=== PATIENT | female | born 1990 | race Caucasian/White ===

== ENCOUNTER 2024-09-02 19:16 | Emergency (ER) | payer MEDICAID, SELFPAY ==
[2024-09-02 19:17] VITALS: BMI 32.7
[2024-09-02 19:41] VITALS: BP 108/76; PULSE 65; RESP 16; TEMP 36.6; O2SAT 100
--- NOTE | 2024-09-02 19:57 | XR_ITS ---
Examination: PA lateral chest 2 views Technique: Upright PA lateral chest 2 views Exam date and time: September 02, [id number] hrs. Indications: Coughing beginning 2 weeks ago. Findings: Suspicious for early medial right base pneumonia Normal heart size Left lung clear Impression: Suspicious for early medial right base pneumonia
--- NOTE | 2024-09-02 19:59 | EDNOTE_ITS ---
ED Fever RME/HPI General Chief Complaint: Fever Stated Complaint: FEVER/ VOMITING [id number] Time Seen by Provider: 09/02/24 19:25 Arrival date/time: 09/02/24 19:16 This is a 33-year-old female that comes in with complaints of for fever, nausea vomiting, weakness, cough for about 2 weeks now. Patient has been treated with 2 different antibiotics the first being Augmentin and the second 1 being Zithromax. Patient states she still feels sick and she is not feeling better. Limitations: no limitations Related Data Home Medications ?Medication ?Instructions ?Recorded ?Confirmed cetirizine 10 mg tablet (Zyrtec) 10 mg PO QDAY 06/12/20 11/01/20 Previous Rx's ?Medication ?Instructions ?Recorded meloxicam 15 mg tablet 15 mg PO QDAY #30 tabs 11/01/20 famotidine 20 mg tablet 20 mg PO QDAY #30 tabs 12/26/23 sucralfate 100 mg/mL oral 5 ml PO QID #400 mL 12/26/23 suspension (Carafate) ibuprofen 800 mg tablet 800 mg PO TID PRN pain #30 tabs 06/04/24 ibuprofen 800 mg tablet 800 mg PO Q6H PRN pain #14 tabs 09/02/24 ondansetron 4 mg disintegrating 4 mg PO Q6H PRN nausea and 09/02/24 tablet vomiting #14 tabs promethazine-DM 6.25 mg-15 mg/5 mL 5 ml PO Q6H PRN cough #120 mL 09/02/24 oral syrup Allergies Allergy/AdvReac Type Severity Reaction Status Date / Time hydromorphone Allergy Severe hives Verified 06/04/24 13:11 latex Allergy Severe Hives Verified 06/04/24 13:11 meperidine Allergy Severe hives Verified 06/04/24 13:11 morphine Allergy Severe hives Verified 06/04/24 13:11 trimethoprim Allergy Severe RASH, Verified 06/04/24 13:11 ITCHING adhesive tape AdvReac Severe TEARS SKIN Verified 06/04/24 13:11 Review of Systems Review of Systems Systems Reviewed: All systems reviewed, normal except as documented Past Medical History Past Medical History NEUROLOGIC: Negative Neurological Disorders or Seizures CARDIAC: Positive Cardiac Disorders, Congestive Heart Failure and Hypertension RESPIRATORY: Positive Pulmonary Edema; Negative Chronic Obstructive Pulmonary Disease (COPD) GASTROINTESTINAL: Negative Gastrointestinal Disorders GENITOURINARY: Negative Genitourinary Disorders or Renal Disease REPRODUCTIVE: Positive Previous Pregnancies MUSCULOSKELETAL: Negative Musculoskeletal Disorders ENDOCRINE: Negative Endocrine Disorders, Diabetes Mellitus Type 1 or Diabetes Mellitus Type 2 HEMATOLOGIC: Negative Blood Disorders PSYCHO/SOCIAL: Positive Anxiety OTHER HISTORY: Positive Hospitalization and Autoimmune Disease; Negative Blood Transfusions, Blood Transfusion Reaction, Anesthesia Reactions or Cancer Family History FAMILY HISTORY: Positive Family Cardiac Disorders and Family Cancer; Negative Family Psychiatric Problems, Family Respiratory Disorders, Family Gastrointestinal Problems, Family Surgery or Family Anesthesia Reaction Surgical History SURGICAL: Positive Section; Negative Cardiac Surgery, Endocrine Surgery, Ear Surgery or Abdominal Surgery Social History SMOKING STATUS: Current some day smoker SECOND HAND EXPOSURE: No SUBSTANCE USE: does not use Physical Exam General Limitations: no limitations General appearance: alert and in no apparent distress Head Head exam: atraumatic and normocephalic Eye Eye exam: Present normal appearance, PERRL and EOMI ENT ENT exam: Present mucous membranes moist Neck Neck exam: Present normal inspection and full ROM Chest Chest inspection: Present normal inspection and symmetric chest wall rise Respiratory Respiratory exam: Present normal lung sounds bilaterally Cardiovascular Cardiovascular exam: Present regular rate Abdominal Exam Abdominal exam: Present soft Extremities Exam Extremities exam: Present normal inspection and full ROM Back Exam Back exam: Present normal inspection and full ROM Neurological Exam Neurological exam: Present alert and oriented X3 Psychiatric Psychiatric exam: Present normal affect and normal mood Skin Skin exam: Present warm and dry ED Exam General Limitations: Present no limitations General appearance: Present alert and in no apparent distress Head Head exam: Present atraumatic and normocephalic Eye Eye exam: Present normal appearance, PERRL and EOMI ENT ENT exam: Present mucous membranes moist Neck Neck exam: Present normal inspection and full ROM Chest Chest inspection: Present normal inspection and symmetric chest wall rise Respiratory Respiratory exam: Present normal lung sounds bilaterally Cardiovascular Cardiovascular exam: Present regular rate Abdominal Exam Abdominal exam: Present soft Extremities Exam Extremities exam: Present normal inspection and full ROM Back Exam Back exam: Present normal inspection and full ROM Neurological Exam Neurological exam: Present alert and oriented X3 Psychiatric Psychiatric exam: Present normal affect and normal mood Skin Skin exam: Present warm and dry Course Quality Measures none Orders Category Date Time Status Bedside COVID-19 Antigen Test NOW Care 09/02/24 19:57 Completed Bedside Influenza A&B Antigen Test NOW Care 09/02/24 19:57 Completed XR chest 2V Stat Exams 09/02/24 19:57 Completed HCG Qualitative,Urine Stat Lab 09/02/24 20:00 Completed Urinalysis, C/S if Indicated Stat Lab 09/02/24 20:00 Completed Ondansetron Odt [Zofran Odt] Med 09/02/24 19:58 Discontinued 4 mg PO X1 ONE Vital Signs Vital signs: Vital Signs Temperature 97.9 F 09/02/24 19:41 Pulse Rate 65 09/02/24 19:41 Respiratory Rate 16 09/02/24 19:41 Blood Pressure 108/76 09/02/24 19:41 Pulse Oximetry (%) 100 09/02/24 19:41 Oxygen Delivery Method Room Air 09/02/24 19:41 Fever MDM Narrative MDM Narrative:: Findings: Suspicious for early medial right base pneumonia Normal heart size Left lung clear Impression: Suspicious for early medial right base pneumonia Patient already on Zithromax and was given a course of Augmentin prior to that. Patient covered for pneumonia. Will treat other symptoms Patient data External records reviewed:: [facility] previous records Clinical information provided by:: patient Social determinants that could affect healthcare access:: none Patient has the following chronic illnesses:: none How is presenting disease/condition affected by chronic disease/condition?: no chronic disease Evaluation data The following diagnostics were reviewed and interpreted by me:: lab results and radiology exam(s) Lab and/or radiology exams considered but not ordered:: none Interpretation Summary: see note Medications / Prescriptions Medications or Prescriptions considered but not ordered:: none Medication administrations:: Medication Administration History Discontinued Medications Ondansetron HCl (Ondansetron Odt 4 Mg Tabrap) 4 mg PO X1 ONE; Protocol Stop: 09/02/24 19:59 Last Admin: 09/02/24 20:03 Dose: 4 mg Documented By: KF see [facility] Consultations Consultation(s) initiated? (list below): No Diagnosis Fever Differential Diagnosis: community acquired pneumonia, viral infection and influenza Most likely diagnosis given after review of the tests above:: pneumonia Admission Indicated Admission indicated?: not indicated Admission Request Was there a request for admission?: No Disposition Plan Disposition Plan: Discharge Discharge Attestation Discharge Attestation: The patient and all family members were given an opportunity to ask questions and understood the discharge instructions. Discharge instructions specifically effects, indications for sooner follow up or return to the emergency department, and the expected course of current diagnosis. Patient condition: Stable Discharge Plan Plan Patient Disposition: HOME (Self Care) Patient condition on transfer: Stable Prescriptions/Referrals Prescriptions/Med Rec: New promethazine-DM 6.25-15 mg/5 mL syrup 5 ml PO Q6H PRN (Reason: cough) Qty: 120 0RF ibuprofen 800 mg tablet 800 mg PO Q6H PRN (Reason: pain) Qty: 14 0RF ondansetron 4 mg tablet,disintegrating 4 mg PO Q6H PRN (Reason: nausea and vomiting) Qty: 14 0RF No Action cetirizine [Zyrtec] 10 mg tablet 10 mg PO QDAY meloxicam 15 mg tablet 15 mg PO QDAY Qty: 30 0RF famotidine 20 mg tablet 20 mg PO QDAY Qty: 30 0RF sucralfate [Carafate] 100 mg/mL suspension 5 ml PO QID Qty: 400 0RF Rx Instructions: swish in mouth and swallow; use after food/drink ibuprofen 800 mg tablet 800 mg PO TID PRN (Reason: pain) Qty: 30 0RF Referrals: Temporary Provider,ED [Physician] - In 1 week Problem List Clinical Impression: Pneumonia Patient/Caregiver Discharge Instructions Discharge Activity: activity as tolerated Education Materials: ED Pneumonia (Adult), ED Vomiting (Adult) Additional Instructions: Follow-up with primary provider in 1 to 2 days. Come back to the emergency room if symptoms change or worsen. Get plenty of rest and drink plenty of fluids. Print Language: Comoran Stand Alone Forms: Karie Award Info., Patient Portal Info Letter PA/JONATHAN Supervising Physician UMBERTO Supervising Physician: [email or web address]
[2024-09-02] MEDS: ONDANSETRON ODT 4 MG TABRAP PO (20:03)
[2024-09-02 20:27] LABS: Collection Type, Urine Voided
[2024-09-02 20:38] LABS: Bilirubin,Urine Negative (Negative); Blood,Urine Negative (Negative); Clarity,Urine Clear (Clear/Hazy); Color,Urine Lt-Yellow (Lt Yel-Yel); Culture Indicated,Urine Not Indicated; Glucose, Urine Negative (Negative); Ketones,Urine Negative (Negative); Leukocyte Esterase,Urine Negative (Negative); Nitrite,Urine Negative (Negative); PH,Urine 7.5 (5.0-7.0); Protein,Urine Trace (Neg - Trace); RBC,Urine 2 /hpf (0-3); Specific Gravity,Urine 1.025 (1.001-1.035); Squamous Epithelial Cell,Urine 1 /hpf (0-5); Urobilinogen,Urine Negative mg/dL (0.0-1.0); WBC,Urine 1 /hpf (0-5)
[2024-09-02 20:56] LABS: HCG Qualitative,Urine Negative
== END 2024-09-02 21:45 | disposition home or self-care (01) ==
PROVIDERS: Nurse Practitioner Family; Emergency Provider Emergency Medicine; PCP Family Medicine
DX: J18.9 Pneumonia, unspecified organism (principal)
CPT/HCPCS: 71046; 81001; 81025; 87400; 87811; 99283; Q0162